=== PATIENT | female | born 1975 | race Caucasian/White ===

== ENCOUNTER → 2020-05-18 | Outpatient (CLI) | payer BC ==
--- NOTE | 2020-05-18 13:00 | ECHOF ---
Referral Reason:R06.00 Dyspenia MEASUREMENTS -------- HEIGHT: 160.0 cm WEIGHT: 81.6 kg BP: RVIDd: 3.1 cm (< 3.3) IVSd: 1.0 cm (0.6 - 1.1) LVIDd: 3.6 cm (3.9 - 5.3) LVPWd: 1.1 cm (0.6 - 1.1) IVSs: 1.5 cm LVIDs: 2.2 cm LVPWs: 1.6 cm LAESV Index (A-L): 18.56 ml/m Ao Diam: 2.5 cm (2.0 - 3.7) AV Cusp: 1.7 cm (1.5 - 2.6) MV EXCURSION: 13.820 mm (> 18.000) MV EF SLOPE: 108 mm/s (70 - 150) EPSS: 0.4 cm MV E Jose: 0.81 m/s MV DecT: 124 ms MV A Jose: 0.99 m/s MV E/A Ratio: 0.82 RAP: 5.00 mmHg RVSP: 27.08 mmHg FINDINGS -------- Sinus rhythm. This was a technically adequate study. The left ventricular size is normal. Left ventricular wall thickness is normal. Overall left vent ricular systolic function is normal with, an EF between 55 - 60 %. The diastolic filling pattern is normal for the age of the patient 9.19. The right ventricle is normal in size. Normal LA size by volume 22+/-6 ml/m2. The right atrial size is normal. Interatrial and interventricular septum intact. The aortic valve is trileaflet, and appears structurally normal. No aortic stenosis or regurgitation. The mitral valve is normal. There is trace to mild mitral regurgitation. The tricuspid valve appears structurally normal. Trace tricuspid regurgitation present. There is no evidence of pulmonary hypertension. The right ventricular systolic pressure, as measured by Dopp ler, is 27.08mmHg. Trace/mild (physiologic) pulmonic regurgitation. The aortic root size is normal. Normal inferior vena cava with normal inspiratory collapse consistent with estimated right atrial pre ssure of 5 mmHg. There is no pericardial effusion. CONCLUSIONS -------- 1. Overall left ventricular systolic function is normal with, an EF between 55 - 60 %. 2. The aortic valve is trileaflet, and appears structurally normal. No aortic stenosis or regurgitati on. 3. There is trace to mild mitral regurgitation. 4. Trace tricuspid regurgitation present. HORSE SHOER: Peggy Cárdenas RDCS
== END | disposition home or self-care (01) ==
LOC: RADECHMAIN 11:08
PROVIDERS: ATTEND Family Medicine
DX: I08.1 Rheumatic disorders of both mitral and tricuspid valves (principal); R06.00 Dyspnea, unspecified
CPT/HCPCS: 93306